=== PATIENT | female | born 2000 | race Two or more races ===

== ENCOUNTER 2024-04-06 20:16 | Emergency (ER) | payer OTHER ==
[~2024-04-06] VITALS: Ht 147.3 cm; Wt 58.5 kg
[2024-04-06] MEDS ORDERED: PRENA1 TRUE CO1 EACH (20:18)
[2024-04-06] MEDS ORDERED: ONDANSETRON HCL 2 MG/ML VIAL IV STA (20:43)
[2024-04-06] MEDS ORDERED: 0.9 % SODIUM CHLORIDE 1,000 ML IV STA (20:43)
[2024-04-06] MEDS ORDERED: ONDANSETRON HCL 2 MG/ML VIAL ONE ×2 (20:46)
[2024-04-06 21:12] LABS: HEMATOCRIT 32.1 % (36.0-45.00); HEMOGLOBIN 11.1 g/dL (12.0-15.00); MEAN CELL VOLUME 82.2 fL (80.00-100.00); MEAN CORPUSCULAR HEMOGLOBIN 28.4 pg (27.00-32.0); MEAN CORPUSCULAR HGB CONC 34.5 g/dl (32.0-36.0); PLATELET COUNT 178 K/uL (150-450); RED BLOOD COUNT 3.91 M/uL (4.00-6.00); RED CELL DISTRIBUTION WIDTH 12.6 % (11.5-14.5)
[2024-04-06 21:28] LABS: PH,URINE 5.5 (5.0-8.0); URINE APPEARANCE Cloudy; URINE BILIRRUBIN Negative (NEGATIVE); URINE BLOOD Negative; URINE COLOR Dark Yellow; URINE GLUCOSE Negative (NEGATIVE); URINE LEUKOCYTE Small; URINE NITRATE Negative; URINE PROTEIN 30 (NEGATIVE)
[2024-04-06 21:31] LABS: URINE BACTERIA 7125.2 uL (0.0-1933); URINE CAST 2.44 uL (0.0-1.40); URINE EPITHELIAL CELLS 76.5 uL (0.0-38.8); URINE RBC 26.7 uL (0.0-20.8)
[2024-04-06 21:34] LABS: CALCIUM 8.8 mg/dL (8.5-10.1); CREATININE SERUM 0.63 mg/dL (0.55-1.02); GFR 118.16; POTASSIUM 3.47 mEq/L (3.5-5.1)
[2024-04-06 21:47] LABS: URINE KETONE >=160 (NEGATIVE)
[2024-04-06 21:48] LABS: URINE MUCUS HEAVY
[2024-04-07] MEDS ORDERED: CEFTRIAXONE SODIUM 1,000 MG VIAL IV STA (02:13)
[2024-04-07] MEDS ORDERED: CEPHALEXIN500 MG PO (02:15)
[2024-04-07] MEDS ORDERED: ZOFRAN8 MG PO (02:15)
[2024-04-07] MEDS ORDERED: PEPCID40 MG PO (02:15)
[2024-04-07] MEDS ORDERED: CEFTRIAXONE SODIUM 1,000 MG VIAL ONE (02:23)
== END 2024-04-07 02:37 ==
LOC: ER 20:17
PROVIDERS: Emergency Medicine
DX: O99.612 Diseases of the digestive system complicating pregnancy, second trimester (principal); K92.89 Other specified diseases of the digestive system; Z3A.25 25 weeks gestation of pregnancy; K29.70 Gastritis, unspecified, without bleeding

== ENCOUNTER 2024-05-10 13:11 | Outpatient (CLI) | payer OTHER ==
[2024-05-10 11:57] VITALS: BP 117/75
[~2024-05-10 13:11] MED LIST: CEPHALEXIN500 MG PO; PEPCID40 MG PO; PRENA1 TRUE CO1 EACH; ZOFRAN8 MG PO
[2024-05-10] MEDS ORDERED: RINGERS SOLUTION,LACTATED 1,000 ML IV SCH (13:30)
[2024-05-10] MEDS ORDERED: CEFAZOLIN SODIUM 1,000 MG VIAL IV ONE (13:30)
[2024-05-10] MEDS ORDERED: CEFAZOLIN SODIUM 1,000 MG VIAL ONE (13:32)
[2024-05-10 13:58] LABS: PH,URINE 7.5 (5.0-8.0); URINE APPEARANCE Clear; URINE BILIRRUBIN Negative (NEGATIVE); URINE BLOOD Moderate; URINE COLOR Yellow; URINE GLUCOSE Negative (NEGATIVE); URINE KETONE Negative (NEGATIVE); URINE LEUKOCYTE Trace; URINE NITRATE Negative; URINE PROTEIN Negative (NEGATIVE)
[2024-05-10 14:01] LABS: URINE BACTERIA 1116.1 uL (0.0-1933); URINE EPITHELIAL CELLS 35.4 uL (0.0-38.8); URINE RBC 531.9 uL (0.0-20.8); URINE WBC 53.9 uL (0.0-23.2)
[2024-05-10 14:05] LABS: URINE CAST 0.76 uL (0.0-1.40)
[2024-05-10 14:05] LABS: HEMATOCRIT 30.3 % (36.0-45.00); MEAN CELL VOLUME 83.1 fL (80.00-100.00); MEAN CORPUSCULAR HEMOGLOBIN 27.3 pg (27.00-32.0); MEAN CORPUSCULAR HGB CONC 32.8 g/dl (32.0-36.0); PLATELET COUNT 178 K/uL (150-450); RED BLOOD COUNT 3.65 M/uL (4.00-6.00); RED CELL DISTRIBUTION WIDTH 13.4 % (11.5-14.5)
[2024-05-10 15:09] VITALS: BP 104/70
[2024-05-10] MEDS ORDERED: TAMSULOSIN HCL 0.4 MG CAP PO SCH (17:15)
[2024-05-10 19:28] VITALS: BP 94/62
[2024-05-10] MEDS ORDERED: CEFAZOLIN SODIUM 1,000 MG VIAL IV SCH (21:00)
[2024-05-10 23:18] VITALS: BP 102/68
[2024-05-11 03:55] VITALS: BP 100/63
[2024-05-11 07:06] VITALS: BP 95/60
[2024-05-11 13:50] VITALS: BP 99/62
== END 2024-05-11 14:36 | disposition home or self-care (01) ==
LOC: OBS/DEL 13:11
PROVIDERS: Obstetrics & Gynecology; ATTEND Specialist
DX: O26.893 Other specified pregnancy related conditions, third trimester (principal); R10.2 Pelvic and perineal pain; Z3A.29 29 weeks gestation of pregnancy

== ENCOUNTER 2024-07-10 13:15 | Inpatient (IN) | payer OTHER ==
[~2024-07-10] VITALS: Ht 180.3 cm; Wt 71.7 kg
[2024-07-13] VITALS (7 sets, daily range): BP systolic 108–142; BP diastolic 65–83
[2024-07-13] MEDS ORDERED: RINGERS SOLUTION,LACTATED 1,000 ML IV SCH ×2 (05:30→10:30)
[2024-07-13] MEDS ORDERED: AMPICILLIN SODIUM 2,000 MG VIAL IV ONE (10:15)
[2024-07-13] MEDS ORDERED: OXYTOCIN 500 ML IV SCH (10:30)
[2024-07-13] MEDS ORDERED: MORPHINE SULFATE 4 MG/ML VIAL IV ONE (10:30)
[2024-07-13] MEDS ORDERED: AMPICILLIN SODIUM 1,000 MG VIAL IV SCH (13:00)
[2024-07-13] MEDS ORDERED: IBUprofen 400 MG TABLET PO PRN (15:15)
[2024-07-13] MEDS ORDERED: OXYTOCIN 1,000 ML IV SCH (15:45)
[2024-07-13] MEDS ORDERED: ERYTHROMYCIN BASE OPHT 1GM EACH TUBE OP ONE (15:45)
[2024-07-13] MEDS ORDERED: CHLORHEXIDINE GLUCONATE 120 ML BOTTLE TOP ONE (15:45)
[2024-07-13] MEDS ORDERED: LIDOCAINE HCL 1% 10ML VIAL IJ ONE (15:45)
[2024-07-13 21:19] LABS: HEMATOCRIT 29.7 % (36.0-45.00); HEMOGLOBIN 9.6 g/dL (12.0-15.00); MEAN CELL VOLUME 82.6 fL (80.00-100.00); MEAN CORPUSCULAR HEMOGLOBIN 26.8 pg (27.00-32.0); MEAN CORPUSCULAR HGB CONC 32.5 g/dl (32.0-36.0); PLATELET COUNT 170 K/uL (150-450); RED BLOOD COUNT 3.59 M/uL (4.00-6.00); RED CELL DISTRIBUTION WIDTH 13.7 % (11.5-14.5)
[2024-07-14 01:45] VITALS: BP 125/78
[2024-07-14 07:56] VITALS: BP 110/76
[2024-07-14] MEDS ORDERED: PNV,CALCIUM 72/IRON/FOLIC ACID 1 TAB TABLET PO SCH (09:00)
[2024-07-14] MEDS ORDERED: FF) RHO(D) IMMUNE GLOBULIN (POM) IM NR (09:45)
[2024-07-14 13:12] VITALS: BP 127/67
[2024-07-14 16:00] VITALS: BP 124/80
[2024-07-15 01:00] VITALS: BP 111/70
[2024-07-15 08:32] VITALS: BP 116/78
== END 2024-07-15 11:40 | disposition home or self-care (01) | DRG 807 ==
LOC: OB/GYN 07-13 09:54 → LDR 07-13 09:54 → OB/GYN 07-13 15:39
PROVIDERS: Obstetrics & Gynecology; ADMIT Specialist; ATTEND Specialist
PROC: 10E0XZZ Delivery of Products of Conception, External Approach (ICD-10-PCS; principal; 2024-07-13)
PROC: 0KQM0ZZ Repair Perineum Muscle, Open Approach (ICD-10-PCS; 2024-07-13)
PROC: 4A1HXCZ Monitoring of Products of Conception, Cardiac Rate, External Approach (ICD-10-PCS; 2024-07-13)
DX: O70.1 Second degree perineal laceration during delivery (principal); Z37.0 Single live birth; Z3A.39 39 weeks gestation of pregnancy; Z20.822 Contact with and (suspected) exposure to COVID-19

== ENCOUNTER 2024-07-13 05:24 | Outpatient (CLI) | payer OTHER ==
[2024-07-13 04:27] VITALS: BP 131/70
[2024-07-13] MEDS ORDERED: PRENATABS RX T1 EACH PO (05:36)
[2024-07-13] MEDS ORDERED: RINGERS SOLUTION,LACTATED 1,000 ML IV SCH (07:15)
[2024-07-13 07:36] LABS: HEMOGLOBIN 10.9 g/dL (12.0-15.00); MEAN CELL VOLUME 80.9 fL (80.00-100.00); MEAN CORPUSCULAR HEMOGLOBIN 27.4 pg (27.00-32.0); MEAN CORPUSCULAR HGB CONC 33.9 g/dl (32.0-36.0); PLATELET COUNT 171 K/uL (150-450); RED BLOOD COUNT 3.96 M/uL (4.00-6.00); RED CELL DISTRIBUTION WIDTH 13.9 % (11.5-14.5)
[2024-07-13 07:50] VITALS: BP 137/77
[2024-07-13 07:52] LABS: PH,URINE 7.5 (5.0-8.0); URINE APPEARANCE Cloudy; URINE BILIRRUBIN Negative (NEGATIVE); URINE BLOOD Negative; URINE COLOR Yellow; URINE GLUCOSE Negative (NEGATIVE); URINE KETONE Negative (NEGATIVE); URINE LEUKOCYTE Negative; URINE NITRATE Negative; URINE PROTEIN Negative (NEGATIVE)
[2024-07-13 07:53] LABS: URINE BACTERIA 117.1 uL (0.0-1933); URINE EPITHELIAL CELLS 19.3 uL (0.0-38.8); URINE RBC 2.5 uL (0.0-20.8); URINE WBC 14.6 uL (0.0-23.2)
[2024-07-13 08:05] LABS: INR < 0.93; PROTHROMBIN TIME 9.9 SECONDS (9.0-11.5)
== END 2024-07-13 09:56 | disposition home or self-care (01) ==
LOC: OBS/DEL 05:24
PROVIDERS: Obstetrics & Gynecology; ATTEND Specialist
DX: O26.893 Other specified pregnancy related conditions, third trimester (principal); Z3A.39 39 weeks gestation of pregnancy